=== PATIENT | male | born 1950 | race Caucasian/White ===

== ENCOUNTER 2025-02-21 14:56 | Emergency (ER) | payer MEDICARE, MEDICAID, SELFPAY ==
--- OUTSIDE RECORDS SUMMARY | 2015-07-03 09:00 | XMS_ITS | Continuity of Care Document ---
Author Organization [facility] Address [address] [id number] [address] Phone Care Team Providers Care Manager Baby Name Role Phone Unavailable Unavailable Unavailable Allergies, Adverse Reactions, Alerts Substance Reaction Status Criticality No Known allergies Medications Medication Instructions Dosage Effective Dates (start - stop) Status Comments hydrocodone 5 mg-acetaminophen 325 mg tablet take 1 tablet by oral route every 6 hours as needed for pain for post-op pain 1.00 tablet - Active Humalog 100 unit/mL subcutaneous cartridge inject by subcutaneous route per prescriber's instructions. Insulin dosing requires individualization. 0.00 - Active Levemir Flexpen 100 unit/mL (3 mL) solution subcutaneous insulin pen inject by subcutaneous route per prescriber's instructions. Insulin dosing requires individualization. - Active Procedures Procedure Date Intraoral Periapical First Film Limited Oral Evaluation Problem Focused Extraction, Erupted Tooth Or Exposed Selam t (Elevati Limited oral eval, x-ray & 1st extractio n EDR Approval Note Advance Directives Directive Yes / No Effective Date File Name No Information Encounters Encounter Description Practice Location Reason(s) For Visit Diagnoses Date Provider Providers Copied on Encounter [facility], [id number], [place], [id number], [place] tel:[phone] [facility] No Information 2201 5 No Information Family History Family Member Type Diagnosis Age At Onset Brother Problem (finding) Alive and well Payers Payer name Insurance type Covered democrat ID Authoriza tion(s) No Information Social History Type Description Quantity Date Captured Comments Alcohol Use Details No Caffeine Use Details Unknown Tobacco Use Status Never smoked tobacco 2014 Smoking Status Never smoker Non-Smoking Tobacco Use Details : No Details Available : No Details Available Sex Male Chief Complaint And Reason For Visit No Information Reason For Referral Reason For Referral No Information History Of Present Illness Encounter Date Complaint History Of Prese nt Illness No Information Functional Status Date Functional Assessmen t No Information Instructions Date Instruction Additional Infor mation No Information Assessments Type Assessment Date No Information Patient Care Teams Name Effective Dates (start - stop) Status Members No Information
--- NOTE | 2025-02-21 15:08 | CT_ITS ---
WS: [id number] CT CERVICAL SPINE HISTORY: fall, neck pain TECHNIQUE: Contiguous 2.0 mm axial imaging performed through the entire cervical spine. Sagittal and coronal reformats also performed. All CT scans at [facility] use at least one of these dose optimization techniques: automated exposure control; mA and/or kV adjustment per patient size (includes targeted exams where dose is matched to clinical indication); or iterative reconstruction. DLP: 1468.73 mGy.cm COMPARISON: None available. Increase in the cervical lordosis. No acute fracture. Disc spaces are narrowed. Hypertrophic osteophytes from the cervical vertebral bodies. Lateral masses of C1 and C2 are aligned. The odontoid is intact. Craniocervical junction is normal. Bilateral facet joint arthropathy. Mild LEFT foraminal stenosis at C2-3. Mild central and foraminal stenosis at C6- 7 particularly due to osteophytes. Posterior facets are normally aligned. Lung apices are clear. Small bilateral cervical chain lymph nodes. CT/CT cervical spin wo con* [id number] IMPRESSION: 1. No acute cervical spine fractures. 2. Mild increase in cervical lordosis. 3. Facet joints are normally aligned.
--- NOTE | 2025-02-21 15:08 | CT_ITS ---
WS: [id number] CT HEAD NONCONTRAST HISTORY: fall, head injury TECHNIQUE: Contiguous axial imaging performed through the brain. Bone and soft tissue windows. Sagittal and coronal reformats reviewed. All CT scans at [facility] use at least one of these dose optimization techniques: automated exposure control; mA and/or kV adjustment per patient size (includes targeted exams where dose is matched to clinical indication); or iterative reconstruction. DLP: 1468.73 mGy.cm COMPARISON: None available. No acute intracranial hemorrhage, midline shift or mass effect. Moderate symmetric atrophy and small vessel disease. Several small lacunar infarcts are noted in the basal ganglia. No intraventricular hemorrhage. Ventricles: Mild ventriculomegaly on the basis of atrophy. No inferior displacement the cerebellar tonsils. Paranasal sinuses: As visualized are clear. Mastoid air cells: Well pneumatized. Calvarium and scalp: Skull is intact with no soft tissue edema or swelling. Visualized nasal bones and the zygomatic arches are intact. CT/CT head wo con* [id number] IMPRESSION: 1. No acute intracranial hemorrhage or edema. 2. Moderate symmetric atrophy and small vessel disease with lacunar infarcts. 3. No skull fracture.
[2025-02-21 15:09] VITALS: BP 124/65; PULSE 79; RESP 22; TEMP 36.6; O2SAT 96; BMI 26.9
--- NOTE | 2025-02-21 15:29 | XR_ITS ---
WS: [id number] Right hip, 3 views, AP pelvis, 02/21/2025 Clinical Data: hip pain Comparison: None. Findings: No fractures or dislocations are seen. Both hips show osteoarthritic acetabular spurring. There is vascular calcification. 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 The soft tissues are not remarkable. The adjacent pelvis is normal. XR/XR hip RT 2-3V wo/w pel* [id number] Impression: Negative pelvis and right hip.
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
--- NOTE | 2025-02-21 15:49 | PC.PHAR ---
Pt is from [facility]
[2025-02-21 16:18] VITALS: BP 141/73; PULSE 86; O2SAT 96
[2025-02-21 17:20] VITALS: BP 126/62; PULSE 73; O2SAT 96
== END 2025-02-21 18:22 | disposition home or self-care (01) ==
PROVIDERS: Emergency Provider Emergency Medicine
DX: S09.90XA Unspecified injury of head, initial encounter (principal); W51.XXXA Accidental striking against or bumped into by another person, initial encounter; Z79.01 Long term (current) use of anticoagulants; I25.10 Atherosclerotic heart disease of native coronary artery without angina pectoris; E11.9 Type 2 diabetes mellitus without complications; I10 Essential (primary) hypertension; Z86.73 Personal history of transient ischemic attack (TIA), and cerebral infarction without residual deficits
CPT/HCPCS: 70450; 72125; 73502; 99284